=== PATIENT | female | born 1960 | race Caucasian/White ===

== ENCOUNTER 2021-03-21 07:02 | Emergency (ER) | payer OTHER, BC, SELFPAY ==
[2021-03-21] VITALS (9 sets, daily range): BP systolic 123–156; BP diastolic 60–94; PULSE 76–94; RESP 16–20; TEMP 36.6; O2SAT 98–100; BMI 23.6
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
[2021-03-21 07:25] LABS: Basophils % 0.7 % (0.1-2.0); Eosinophils # 0.1 K/mm3 (0.0-0.4); Eosinophils % 2.1 % (0.1-12.0); Hematocrit 41.3 % (37.0-47.0); Hemoglobin 13.4 g/dL (12.2-16.2); Lymphocytes # 1.9 K/mm3 (0.7-4.5); Lymphocytes % 37.6 % (10-50); Mean Corpuscular HGB Conc 32.4 g/dL (31.8-35.4); Mean Corpuscular Hemoglobin 29.7 pg (27.0-31.2); Mean Corpuscular Volume 91.6 fl (81-99); Mean Platelet Volume 7.9 fl (7.4-10.4); Monocytes # 0.3 K/mm3 (0.1-1.0); Monocytes % 6.4 % (1.7-9.3); Neutrophils # 2.7 K/mm3 (1.8-7.8); Neutrophils % 53.2 % (37.0-80.0); Platelet Count 179 K/mm3 (142-424); Red Cell Distribution Width 12.5 % (11.5-17.5); White Blood Count 5.1 K/mm3 (4.8-10.8)
[2021-03-21 07:29] LABS: Chloride 106 mmol/L (98-107); Potassium 3.9 mmoL/L (3.5-5.1); Sodium 141 mmol/L (136-145)
[2021-03-21 07:32] LABS: Alanine Aminotransferase 27 U/L (12-78); Albumin Level 3.9 g/dl (3.5-5.0); Albumin/Globulin Ratio 1.3 (1.1-1.8); Alkaline Phosphatase 79 U/L (38-126); Anion Gap 11.9 mEq/L (5-15); Aspartate Amino Transferase 45 U/L (14-36); Bilirubin,Total 0.2 mg/dl (0.2-1.3); Blood Urea Nitrogen 8 mg/dl (7-17); Carbon Dioxide 27 mmol/L (22.0-30.0); Creatinine Clearance Estimated 51 mL/min (50-200); Estimated Glomerular Filt Rate 101 ml/min (>60); GFR (African American) 123 ML/MIN (>60); Globulin 2.9 g/dL (1.3-3.2); Glucose 102 mg/dl (74-100); Total Protein,Serum 6.8 g/dl (6.3-8.2)
--- NOTE | 2021-03-21 07:45 | PC.NURSE ---
to ct per wheelchair
--- NOTE | 2021-03-21 09:00 | PC.NURSE ---
PT RESTING OFFERS NO C/O AT PRESENT
--- NOTE | 2021-03-21 10:30 | PC.NURSE ---
RESTING DR RENE SUTURING FACIAL LAC
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
== END 2021-03-21 12:48 | disposition home or self-care (01) ==
PROVIDERS: Emergency Provider Emergency Medicine; PCP Emergency Medicine
DX: S01.112A Laceration without foreign body of left eyelid and periocular area, initial encounter (principal); V43.53XA Car driver injured in collision with pick-up truck in traffic accident, initial encounter; Y92.413 State road as the place of occurrence of the external cause
CPT/HCPCS: 12015; 70450; 70486; 71046; 72125; 72170; 74177; 80053; 85025; 99283; Q9967

== ENCOUNTER 2021-03-27 17:12 | Emergency (ER) | payer OTHER, SELFPAY ==
[2021-03-27 18:46] VITALS: BP 0/0; PULSE 0; RESP 0; TEMP -17.7; TEMP 0; O2SAT 0
== END 2021-03-27 18:47 | disposition left against medical advice (07) ==
LOC: UTC 17:15
PROVIDERS: Emergency Provider Nurse Practitioner; PCP Emergency Medicine
DX: S01.112D Laceration without foreign body of left eyelid and periocular area, subsequent encounter (principal)